=== PATIENT | male | born 1970 | race Caucasian/White ===

== ENCOUNTER 2022-06-17 08:54 | Day surgery (SDC) | payer OTHER ==
[2022-06-14 13:53] VITALS: BMI 45.0
[2022-06-17] MEDS ORDERED: SUCCINYLCHOLINE CHLORIDE 200 MG/10 ML SYRINGE ONE (09:37)
[2022-06-17] MEDS ORDERED: MIDAZOLAM HCL 2 MG/2 ML SINGLE DOSE VIAL ONE (09:37)
[2022-06-17] MEDS ORDERED: PROPOFOL 40 ML ONE (09:37)
[2022-06-17] MEDS ORDERED: BUPIVACAINE HCL/PF 2.5 MG/ML - 30 ML VIAL IJ ONE (09:55)
[2022-06-17] MEDS ORDERED: ONDANSETRON 4 MG/2 ML VIAL IVPUSH PRN (10:12)
[2022-06-17] MEDS ORDERED: PROMETHAZINE HCL 25 MG/1 ML VIAL IVPB PRN (10:12)
[2022-06-17] MEDS ORDERED: oxyCODONE HCL 5 MG TABLET PO PRN (10:12)
[2022-06-17] MEDS ORDERED: LACTATED RINGERS SOLUTION 1,000 ML IV SCH (10:15)
[2022-06-17 11:48] VITALS: TEMP 98
[2022-06-17 13:48] VITALS: RESP 16
[2022-06-17 13:56] VITALS: BP 111/72; PULSE 74
== END 2022-06-17 13:45 | disposition home or self-care (01) ==
LOC: FASU 08:54
PROVIDERS: ATTEND Orthopaedic Surgery
PROC: 0SBD4ZZ Excision of Left Knee Joint, Percutaneous Endoscopic Approach (ICD-10-PCS; 2022-06-17)
PROC: 0SBD4ZZ Excision of Left Knee Joint, Percutaneous Endoscopic Approach (ICD-10-PCS; principal; 2022-06-17 10:50)
DX: S83.242A Other tear of medial meniscus, current injury, left knee, initial encounter (principal); S83.282A Other tear of lateral meniscus, current injury, left knee, initial encounter; S83.8X2A Sprain of other specified parts of left knee, initial encounter; M65.862 Other synovitis and tenosynovitis, left lower leg; X58.XXXA Exposure to other specified factors, initial encounter; Y93.9 Activity, unspecified; Y92.9 Unspecified place or not applicable
CPT/HCPCS: 82962; 94760

== ENCOUNTER 2024-01-04 04:26 | Emergency (ER) | payer OTHER ==
[2024-01-04 04:36] VITALS: BP 132/90; PULSE 71; RESP 20; TEMP 97.4; BMI 38.7
[2024-01-04] MEDS ORDERED: ONDANSETRON *ODT* 4 MG TABLET ONE (05:00)
[2024-01-04] MEDS: ONDANSETRON *ODT* 4 MG TABLET SL ONE (05:03)
[2024-01-04] MEDS ORDERED: FAMOTIDINE 20 MG TABLET ONE (05:20)
[2024-01-04] MEDS ORDERED: MAG HYDROX/AL HYDROX/SIMETH 30 ML UNIT-DOSE CUP ONE (05:20)
[2024-01-04] MEDS: FAMOTIDINE 20 MG TABLET PO ONE (05:22)
[2024-01-04] MEDS: MAG HYDROX/AL HYDROX/SIMETH 30 ML UNIT-DOSE CUP PO ONE (05:22)
== END 2024-01-04 06:20 | disposition home or self-care (01) ==
LOC: JER 04:26
DX: R11.0 Nausea (principal); R42 Dizziness and giddiness; R10.13 Epigastric pain; T43.205A Adverse effect of unspecified antidepressants, initial encounter
CPT/HCPCS: 99283-25; Q0162